=== PATIENT | male | born 1995 | race African-American/Black ===

== ENCOUNTER 2018-08-10 19:07 | Emergency (ER) | payer SELFPAY ==
[2018-08-10] MEDS: levETIRAcetam INJection 1,000 MG in D5W 100 ML IV (19:47)
== END 2018-08-10 21:29 | disposition home or self-care (01) ==
LOC: M ED 19:07
DX: G40.909 Epilepsy, unspecified, not intractable, without status epilepticus (principal); Z79.899 Other long term (current) drug therapy
CPT/HCPCS: J1953

== ENCOUNTER 2018-12-25 11:39 | Emergency (ER) | payer OTHER, SELFPAY ==
[~2018-12-25] VITALS: Ht 172.7 cm; Wt 68.2 kg
[~2018-12-25 11:39] MED LIST: KEPP10002 PO; LAMO100T PO; OXCA600T8 PO
--- NOTE | 2018-12-25 12:19 | REP ---
CT Head without contrast HISTORY: Head injury COMPARISON: There is no intraparenchymal hemorrhage, acute infarct, mass or midline shift. The ventricular system is normal in appearance. There is no extra cerebral collection. There is no fracture. The visualized sinuses are clear. IMPRESSION: There is no intracranial lesion. Electronically Signed by Klever Jamison MD 12/25/2018 12:10 P
--- NOTE | 2018-12-25 12:23 | REP ---
CT cervical spine without contrast HISTORY: Head injury COMPARISON: None There is no acute fracture or subluxation. There is no disc bulge or herniation. The spinal canal and neural foramina are patent. The intervertebral discs and vertebral bodies are normal in height. IMPRESSION: There is no acute fracture or subluxation. Electronically Signed by Klever Jamison MD 12/25/2018 12:14 P
[2018-12-25] MEDS ORDERED: KEPP10002 PO (12:40)
[2018-12-25] MEDS ORDERED: OXCA600T8 PO (12:41)
[2018-12-25] MEDS ORDERED: LAMI1TAB8 PO (12:41)
[2018-12-25] MEDS ORDERED: lamoTRIgine 100MG TAB PO ONE (12:45)
[2018-12-25] MEDS ORDERED: OXcarbazepine 300 MG TAB PO ONE (12:45)
[2018-12-25] MEDS ORDERED: levETIRAcetam 250MG TABLET (KEPPRA) PO ONE (12:45)
[2018-12-25 12:52] VITALS: BP 126/72
== END 2018-12-25 12:58 | disposition home or self-care (01) ==
LOC: M ED 11:39
DX: G40.909 Epilepsy, unspecified, not intractable, without status epilepticus (principal); Z79.899 Other long term (current) drug therapy

== ENCOUNTER 2019-01-03 13:27 | Emergency (ER) | payer OTHER ==
[~2019-01-03] VITALS: Ht 172.7 cm; Wt 67.0 kg
[~2019-01-03 13:27] MED LIST changes: +LAMI1TAB8 PO
[2019-01-03 13:28] VITALS: BP 123/65
[2019-01-03] MEDS ORDERED: LAMI1TAB8 PO (14:00)
[2019-01-03] MEDS ORDERED: KEPP10002 PO (14:00)
[2019-01-03] MEDS ORDERED: OXCA600T8 PO (14:00)
== END 2019-01-03 14:13 | disposition home or self-care (01) ==
LOC: M ED 13:27
DX: Z76.0 Encounter for issue of repeat prescription (principal); R56.9 Unspecified convulsions; Z72.0 Tobacco use; Z79.899 Other long term (current) drug therapy

== ENCOUNTER 2019-01-11 12:38 | Emergency (ER) | payer OTHER ==
[~2019-01-11] VITALS: Ht 172.7 cm; Wt 67.7 kg
[2019-01-11 12:38] VITALS: BP 149/67
[2019-01-11] MEDS ORDERED: LAMI1TAB8 PO (13:13)
[2019-01-11] MEDS ORDERED: OXCA600T8 PO (13:13)
[2019-01-11] MEDS ORDERED: KEPP10002 PO (13:13)
== END 2019-01-11 13:21 | disposition home or self-care (01) ==
LOC: M ED 12:38
DX: Z76.0 Encounter for issue of repeat prescription (principal)

== ENCOUNTER 2019-01-24 11:27 | Emergency (ER) | payer OTHER ==
[~2019-01-24] VITALS: Ht 172.7 cm; Wt 69.1 kg
[2019-01-24] MEDS ORDERED: OXCA600T8 PO (14:26)
[2019-01-24] MEDS ORDERED: KEPP10002 PO (14:26)
[2019-01-24] MEDS ORDERED: LAMI1TAB8 PO (14:26)
[2019-01-24 14:30] VITALS: BP 118/71
== END 2019-01-24 14:34 | disposition home or self-care (01) ==
LOC: M ED 11:27
DX: Z76.0 Encounter for issue of repeat prescription (principal); G40.909 Epilepsy, unspecified, not intractable, without status epilepticus; Z72.0 Tobacco use; Z79.899 Other long term (current) drug therapy

== ENCOUNTER → 2019-02-08 | Outpatient (REF) | payer OTHER, SELFPAY ==
[2019-02-08 16:05] LABS: BASO % 0.7 % (0.0-1.0); EOS # 0.1 10^3/uL (0.0-0.50); HEMATOCRIT 47.1 % (42.0-52.0); HEMOGLOBIN 16.3 g/dl (13.5-17.5); LYMPH # 1.7 10^3/uL (1.5-6.5); LYMPH % 40.1 % (24.0-44.0); MEAN CORPUSCULAR HEMOGLOBIN 30.7 pg (27.0-33.0); MEAN CORPUSCULAR HGB CONC 34.6 g/dl (32.0-36.5); MEAN CORPUSCULAR VOLUME 88.7 fl (80.0-96.0); MONO # 0.6 10^3/uL (0.0-0.8); MONO % 13.8 % (0.0-5.0); NEUTROPHILS # 1.8 10^3/uL (1.8-7.7); NEUTROPHILS % 42.2 % (36.0-66.0); PLATELET COUNT, AUTOMATED 308 10^3/uL (150-450); RED BLOOD COUNT 5.31 10^6/uL (4.30-6.10); WHITE BLOOD COUNT 4.3 10^3/uL (4.0-10.0)
[2019-02-08 16:23] LABS: ALBUMIN 4.6 GM/DL (3.2-5.2); ALT/SGPT 15 U/L (12-78); BILIRUBIN,TOTAL 0.5 MG/DL (0.2-1.0); BLOOD UREA NITROGEN 12 MG/DL (7-18); CALCIUM LEVEL 9.9 MG/DL (8.5-10.1); CARBAMAZEPINE (TEGRETOL) LEVEL < 0.5 UG/ML (4.0-10.0); CARBON DIOXIDE LEVEL 28 MEQ/L (21-32); CHLORIDE LEVEL 102 MEQ/L (98-107); CREATININE FOR GFR 1.19 MG/DL (0.70-1.30); GLOMERULAR FILTRATION RATE > 60.0 (>60); GLUCOSE, FASTING 71 MG/DL (70-100); POTASSIUM SERUM 4.4 MEQ/L (3.5-5.1); SODIUM LEVEL 137 MEQ/L (136-145); TOTAL PROTEIN 7.3 GM/DL (6.4-8.2)
[2019-02-13 10:28] LABS: LAMOTRIGINE (LAMICTAL) 15.6 ug/mL (2.0-20.0); LEVETIRACETAM (KEPPRA) 24.7 ug/mL (10.0-40.0)
== END ==
LOC: M SFHCPLAZ 14:33
PROVIDERS: ATTEND Physician Assistant Medical
DX: R56.9 Unspecified convulsions (principal)

== ENCOUNTER 2019-03-11 15:43 | Emergency (ER) | payer OTHER, SELFPAY ==
[~2019-03-11] VITALS: Ht 172.7 cm; Wt 75.0 kg
[2019-03-11 15:44] VITALS: BP 124/67
[2019-03-11] MEDS ORDERED: OXcarbazepine 300 MG TAB PO STA (16:16)
[2019-03-11] MEDS ORDERED: levETIRAcetam 250MG TABLET (KEPPRA) PO ONE (16:30)
[2019-03-11] MEDS ORDERED: KEPP10002 PO (16:31)
[2019-03-11] MEDS ORDERED: OXCA600T8 PO (16:31)
== END 2019-03-11 16:41 | disposition home or self-care (01) ==
LOC: M ED 15:43
DX: Z76.0 Encounter for issue of repeat prescription (principal); G40.909 Epilepsy, unspecified, not intractable, without status epilepticus; Z79.899 Other long term (current) drug therapy

== ENCOUNTER 2019-03-29 00:12 | Emergency (ER) | payer OTHER, SELFPAY ==
[~2019-03-29] VITALS: Ht 172.7 cm; Wt 65.9 kg
[2019-03-29 00:13] VITALS: BP 132/79
[2019-03-29] MEDS ORDERED: lamoTRIgine 100MG TAB PO ONE (01:00)
[2019-03-29] MEDS ORDERED: levETIRAcetam 250MG TABLET (KEPPRA) PO ONE (01:00)
[2019-03-29] MEDS ORDERED: OXcarbazepine 300 MG TAB PO STA (01:00)
[2019-03-29] MEDS ORDERED: OXCA600T8 PO (01:04)
[2019-03-29] MEDS ORDERED: LAMI1TAB8 PO (01:04)
[2019-03-29] MEDS ORDERED: KEPP10002 PO (01:04)
== END 2019-03-29 01:14 | disposition home or self-care (01) ==
LOC: M ED 00:12
DX: Z76.0 Encounter for issue of repeat prescription (principal); G40.909 Epilepsy, unspecified, not intractable, without status epilepticus; Z79.899 Other long term (current) drug therapy; F17.210 Nicotine dependence, cigarettes, uncomplicated

== ENCOUNTER 2021-11-19 22:56 | Inpatient (IN) | payer OTHER, SELFPAY ==
[~2021-11-19] VITALS: Ht 172.7 cm; Wt 61.0 kg
[~2021-11-19 22:56] MED LIST changes: -LAMO100T PO; +LAMO100T3 PO
[2021-11-19] MEDS: MORPHINE 4 MG/ML 1ML VIAL/SYRINGE (J2270) IV PRN ×2 (23:21→23:51)
[2021-11-20] MEDS ORDERED: MORPHINE 4 MG/ML 1ML VIAL/SYRINGE (J2270) IV ONE ×2 (00:20→05:15)
[2021-11-20] MEDS ORDERED: OXCA600T8 PO (00:40)
[2021-11-20] MEDS ORDERED: HOME MED LIST COMPLETE! XX SCH (00:40)
[2021-11-20] MEDS ORDERED: LAMI1TAB8 PO (00:40)
[2021-11-20] MEDS ORDERED: KEPP10002 PO (00:40)
[2021-11-20 00:47] LABS: BASO % 0.3 % (0.0-1.0); EOS % 0.4 % (0.0-3.0); HEMOGLOBIN 14.8 g/dl (13.5-17.5); LYMPH # 1.4 10^3/uL (1.5-5.0); MEAN CORPUSCULAR HEMOGLOBIN 30.8 pg (27.0-33.0); MEAN CORPUSCULAR HGB CONC 34.4 g/dl (32.0-36.5); MEAN CORPUSCULAR VOLUME 89.4 fl (80.0-96.0); MONO # 0.7 10^3/uL (0.0-0.8); MONO % 7.7 % (2.0-8.0); NEUTROPHILS # 7.2 10^3/uL (1.5-8.5); NEUTROPHILS % 76.2 % (36.0-66.0); PLATELET COUNT, AUTOMATED 297 10^3/uL (150-450); RED BLOOD COUNT 4.81 10^6/uL (4.30-6.10); WHITE BLOOD COUNT 9.5 10^3/uL (4.0-10.0)
[2021-11-20 01:02] LABS: RSV AMPLIFICATION NEGATIVE (NEGATIVE)
[2021-11-20] MEDS ORDERED: MORPHINE 4 MG/ML 1ML VIAL/SYRINGE (J2270) IV PRN ×2 (01:15→02:35)
[2021-11-20 01:22] LABS: BLOOD UREA NITROGEN 18 MG/DL (7-18); CALCIUM LEVEL 9.5 MG/DL (8.5-10.1); CARBON DIOXIDE LEVEL 31 MEQ/L (21-32); CHLORIDE LEVEL 104 MEQ/L (98-107); CREATININE FOR GFR 1.26 MG/DL (0.70-1.30); GLOMERULAR FILTRATION RATE > 60.0 (>60); GLUCOSE, FASTING 115 MG/DL (70-100); POTASSIUM SERUM 4.6 MEQ/L (3.5-5.1); SODIUM LEVEL 139 MEQ/L (136-145)
[2021-11-20] MEDS ORDERED: NS 1,000 ML IV SCH (03:25)
[2021-11-20 04:00] VITALS: BP 146/88
[2021-11-20] MEDS ORDERED: PILL CUTTER 1 EACH XX PRN (04:35)
[2021-11-20] MEDS ORDERED: NALOXONE INJ 0.4MG/1ML VIAL (J2310 PER 1MG) IV PRN (05:15)
[2021-11-20 07:54] LABS: HEMATOCRIT 41.6 % (42.0-52.0); HEMOGLOBIN 14.6 g/dl (13.5-17.5); MEAN CORPUSCULAR HEMOGLOBIN 31.3 pg (27.0-33.0); MEAN CORPUSCULAR HGB CONC 35.1 g/dl (32.0-36.5); MEAN CORPUSCULAR VOLUME 89.3 fl (80.0-96.0); PLATELET COUNT, AUTOMATED 288 10^3/uL (150-450); RED BLOOD COUNT 4.66 10^6/uL (4.30-6.10); WHITE BLOOD COUNT 10.9 10^3/uL (4.0-10.0)
[2021-11-20 08:02] LABS: INR 1.05; PROTHROMBIN TIME 14.1 SECONDS (12.7-14.5)
[2021-11-20 08:30] LABS: BLOOD UREA NITROGEN 14 MG/DL (7-18); CALCIUM LEVEL 8.9 MG/DL (8.5-10.1); CARBON DIOXIDE LEVEL 28 MEQ/L (21-32); CHLORIDE LEVEL 105 MEQ/L (98-107); CREATININE FOR GFR 1.05 MG/DL (0.70-1.30); GLOMERULAR FILTRATION RATE > 60.0 (>60); GLUCOSE, FASTING 113 MG/DL (70-100); POTASSIUM SERUM 4.2 MEQ/L (3.5-5.1); SODIUM LEVEL 138 MEQ/L (136-145)
[2021-11-20] MEDS: HEPARIN SOD (PORCINE) 5000UNITS/ML 1ML VIAL/SYRINGE SC SCH ×2 (09:00→21:46)
[2021-11-20] MEDS: lamoTRIgine 100MG TAB PO SCH ×3 (09:00→21:44)
[2021-11-20] MEDS: OXcarbazepine 300 MG TAB PO SCH ×3 (09:00→21:44)
[2021-11-20] MEDS ORDERED: levETIRAcetam INJection 1,000 MG in D5W 100 ML IV SCH (09:00)
[2021-11-20] MEDS: MORPHINE 4 MG/ML 1ML VIAL/SYRINGE (J2270) IV PRN ×2 (11:29→15:21)
[2021-11-20 14:00] VITALS: BP 134/83
[2021-11-20] MEDS ORDERED: TRANEXAMIC ACID 100 MG/ML 10ML VIAL As Ordered ONE (17:49)
[2021-11-20] MEDS ORDERED: ceFAZolin 2 GM/D5W 50 ML IV BAG (J0690 PER 500MG) As Ordered ONE (17:49)
[2021-11-20] MEDS ORDERED: ONDANSETRON 4MG/2ML VIAL IV PRN (20:25)
[2021-11-20] MEDS ORDERED: HYDROMORPHONE HCL 0.5 MG/ 0.5 ML SYRINGE (J1170 PER 1) IV PRN (20:25)
[2021-11-20] MEDS ORDERED: LR 1,000 ML IV SCH (20:25)
[2021-11-20] MEDS ORDERED: oxyCODONE 5MG TAB PO PRN (20:25)
[2021-11-20] MEDS ORDERED: fentaNYL 100 MCG/2 ML INJECTION IV PRN (20:25)
[2021-11-20 21:27] VITALS: BP 129/67
[2021-11-20] MEDS: levETIRAcetam 250MG TABLET (KEPPRA) PO SCH (21:45)
[2021-11-20] MEDS: LR 1,000 ML IV SCH (21:47)
[2021-11-20 22:00] VITALS: BP 129/76
[2021-11-20 22:30] VITALS: BP 123/67
[2021-11-20 23:30] VITALS: BP 135/78
[2021-11-21] VITALS (9 sets, daily range): BP systolic 123–155; BP diastolic 67–90
[2021-11-21] MEDS: oxyCODONE 5MG TAB PO PRN ×4 (00:55→20:58)
[2021-11-21] MEDS: ceFAZolin SOD 1 GM in D5W MINI-BAG PLUS 50 ML IV SCH ×2 (02:18→09:26)
[2021-11-21] MEDS: MORPHINE 4 MG/ML 1ML VIAL/SYRINGE (J2270) IV PRN (03:45)
[2021-11-21 06:31] LABS: BASO % 0.3 % (0.0-1.0); EOS % 0.1 % (0.0-3.0); HEMATOCRIT 37.8 % (42.0-52.0); HEMOGLOBIN 13.5 g/dl (13.5-17.5); LYMPH # 1.7 10^3/uL (1.5-5.0); LYMPH % 16.1 % (24.0-44.0); MEAN CORPUSCULAR HEMOGLOBIN 31.3 pg (27.0-33.0); MEAN CORPUSCULAR HGB CONC 35.7 g/dl (32.0-36.5); MEAN CORPUSCULAR VOLUME 87.7 fl (80.0-96.0); MONO # 1.4 10^3/uL (0.0-0.8); MONO % 13.2 % (2.0-8.0); NEUTROPHILS # 7.3 10^3/uL (1.5-8.5); PLATELET COUNT, AUTOMATED 261 10^3/uL (150-450); RED BLOOD COUNT 4.31 10^6/uL (4.30-6.10); WHITE BLOOD COUNT 10.4 10^3/uL (4.0-10.0)
[2021-11-21 06:49] LABS: BLOOD UREA NITROGEN 7 MG/DL (7-18); CALCIUM LEVEL 9.2 MG/DL (8.5-10.1); CARBON DIOXIDE LEVEL 31 MEQ/L (21-32); CHLORIDE LEVEL 103 MEQ/L (98-107); GLOMERULAR FILTRATION RATE > 60.0 (>60); GLUCOSE, FASTING 114 MG/DL (70-100); MAGNESIUM LEVEL 1.8 MG/DL (1.8-2.4); POTASSIUM SERUM 4.3 MEQ/L (3.5-5.1); SODIUM LEVEL 138 MEQ/L (136-145)
[2021-11-21] MEDS: ASPIRIN 81 MG CHEW TABLET PO SCH ×2 (08:42→20:58)
[2021-11-21] MEDS: HEPARIN SOD (PORCINE) 5000UNITS/ML 1ML VIAL/SYRINGE SC SCH ×2 (08:42→21:00)
[2021-11-21] MEDS: lamoTRIgine 100MG TAB PO SCH ×2 (08:42→20:59)
[2021-11-21] MEDS: OXcarbazepine 300 MG TAB PO SCH ×2 (08:43→20:58)
[2021-11-21] MEDS: levETIRAcetam 250MG TABLET (KEPPRA) PO SCH ×2 (08:43→20:58)
[2021-11-21] MEDS: LR 1,000 ML IV SCH (09:26)
[2021-11-22 04:00] VITALS: BP 134/78
[2021-11-22] MEDS: oxyCODONE 5MG TAB PO PRN ×3 (05:10→19:28)
[2021-11-22] MEDS: HEPARIN SOD (PORCINE) 5000UNITS/ML 1ML VIAL/SYRINGE SC SCH ×2 (08:30→20:13)
[2021-11-22] MEDS: OXcarbazepine 300 MG TAB PO SCH ×2 (08:30→20:12)
[2021-11-22] MEDS: lamoTRIgine 100MG TAB PO SCH ×2 (08:30→20:13)
[2021-11-22] MEDS: levETIRAcetam 250MG TABLET (KEPPRA) PO SCH ×2 (08:30→20:12)
[2021-11-22] MEDS: ASPIRIN 81 MG CHEW TABLET PO SCH ×2 (08:30→20:13)
[2021-11-22 14:00] VITALS: BP 155/68
[2021-11-22 20:00] VITALS: BP 132/68
[2021-11-23] MEDS: oxyCODONE 5MG TAB PO PRN ×4 (01:48→20:29)
[2021-11-23 04:00] VITALS: BP 124/68
[2021-11-23] MEDS: ASPIRIN 81 MG CHEW TABLET PO SCH ×2 (07:59→20:27)
[2021-11-23] MEDS: lamoTRIgine 100MG TAB PO SCH ×2 (08:00→20:28)
[2021-11-23] MEDS: HEPARIN SOD (PORCINE) 5000UNITS/ML 1ML VIAL/SYRINGE SC SCH ×2 (08:00→20:30)
[2021-11-23] MEDS: OXcarbazepine 300 MG TAB PO SCH ×2 (08:01→20:28)
[2021-11-23] MEDS: levETIRAcetam 250MG TABLET (KEPPRA) PO SCH ×2 (08:01→20:27)
[2021-11-23 14:00] VITALS: BP 126/67
[2021-11-23 20:02] VITALS: BP 121/68
[2021-11-24] MEDS: oxyCODONE 5MG TAB PO PRN (05:01)
[2021-11-24 06:00] VITALS: BP 131/69
[2021-11-24] MEDS: ASPIRIN 81 MG CHEW TABLET PO SCH (09:20)
[2021-11-24] MEDS: levETIRAcetam 250MG TABLET (KEPPRA) PO SCH (09:21)
[2021-11-24] MEDS: lamoTRIgine 100MG TAB PO SCH (09:21)
[2021-11-24] MEDS: OXcarbazepine 300 MG TAB PO SCH (09:21)
[2021-11-24] MEDS: HEPARIN SOD (PORCINE) 5000UNITS/ML 1ML VIAL/SYRINGE SC SCH (09:21)
[2021-11-24] MEDS ORDERED: ASPI81CH8 PO (12:39)
[2021-11-24] MEDS ORDERED: KEPP10002 PO (12:47)
[2021-11-24] MEDS ORDERED: OXCA600T8 PO (12:47)
[2021-11-24] MEDS ORDERED: LAMI1TAB8 PO (12:47)
== END 2021-11-24 14:10 | disposition home or self-care (01) | DRG 313 ==
LOC: M ED 22:56 → M ED INP 11-20 02:19 → M MS4PR 11-20 03:55
PROVIDERS: ADMIT Family Medicine; ATTEND Internal Medicine
PROC: 0QSH04Z Reposition Left Tibia with Internal Fixation Device, Open Approach (ICD-10-PCS; principal; 2021-11-20 09:36)
DX: S82.102A Unspecified fracture of upper end of left tibia, initial encounter for closed fracture (principal); G40.909 Epilepsy, unspecified, not intractable, without status epilepticus; Z79.899 Other long term (current) drug therapy; W18.30XA Fall on same level, unspecified, initial encounter; Y92.009 Unspecified place in unspecified non-institutional (private) residence as the place of occurrence of the external cause; S82.452A Displaced comminuted fracture of shaft of left fibula, initial encounter for closed fracture

== ENCOUNTER → 2021-12-01 | Outpatient (CLI) | payer OTHER ==
[~2021-12-01] MED LIST changes: +ASPI81CH8 PO
== END ==
LOC: M SOG 09:05
PROVIDERS: ATTEND Orthopaedic Surgery
DX: S82.302D Unspecified fracture of lower end of left tibia, subsequent encounter for closed fracture with routine healing (principal); S82.452D Displaced comminuted fracture of shaft of left fibula, subsequent encounter for closed fracture with routine healing; W18.30XD Fall on same level, unspecified, subsequent encounter; Y92.009 Unspecified place in unspecified non-institutional (private) residence as the place of occurrence of the external cause; Y93.9 Activity, unspecified; Y99.9 Unspecified external cause status

== ENCOUNTER 2022-01-08 21:59 | Emergency (ER) | payer MEDICAID ==
[~2022-01-08] VITALS: Ht 172.7 cm; Wt 63.6 kg
[2022-01-08] MEDS ORDERED: lamoTRIgine 100MG TAB PO ONE (22:15)
[2022-01-08] MEDS ORDERED: levETIRAcetam INJection 1,000 MG in D5W 100 ML IV ONE (22:15)
[2022-01-08] MEDS ORDERED: OXcarbazepine 300 MG TAB PO ONE (22:15)
[2022-01-08 22:34] VITALS: BP 136/78
[2022-01-08] MEDS ORDERED: KEPP10002 PO (23:31)
[2022-01-08] MEDS ORDERED: OXCA600T8 PO (23:31)
[2022-01-08] MEDS ORDERED: LAMI1TAB8 PO (23:31)
== END 2022-01-09 00:08 | disposition home or self-care (01) ==
LOC: EDBD 21:59 → M ED 21:59
DX: G40.309 Generalized idiopathic epilepsy and epileptic syndromes, not intractable, without status epilepticus (principal); F12.10 Cannabis abuse, uncomplicated; Z86.69 Personal history of other diseases of the nervous system and sense organs; Z91.19 Patient's noncompliance with other medical treatment and regimen; Z79.899 Other long term (current) drug therapy
CPT/HCPCS: 96365; 99284; J1953

== ENCOUNTER → 2022-01-11 | Outpatient (CLI) | payer MEDICAID | LOC: M SOG 09:33 | PROVIDERS: ATTEND Orthopaedic Surgery | DX: S82.392D Other fracture of lower end of left tibia, subsequent encounter for closed fracture with routine healing (principal) ==

== ENCOUNTER 2022-02-08 17:13 | Emergency (ER) | payer MEDICAID, OTHER ==
[~2022-02-08] VITALS: Ht 172.7 cm; Wt 62.7 kg
[2022-02-08 17:13] VITALS: BP 137/72
[2022-02-08] MEDS ORDERED: KEPP10002 PO (17:50)
== END 2022-02-08 17:56 | disposition home or self-care (01) ==
LOC: M ED 17:13
DX: Z76.0 Encounter for issue of repeat prescription (principal)

== ENCOUNTER 2022-04-08 19:58 | Emergency (ER) | payer OTHER ==
[~2022-04-08] VITALS: Ht 172.7 cm; Wt 63.6 kg
[2022-04-08 19:59] VITALS: BP 119/73
[2022-04-08] MEDS ORDERED: levETIRAcetam 250MG TABLET (KEPPRA) PO STA (22:38)
[2022-04-08] MEDS ORDERED: lamoTRIgine 100MG TAB PO STA (22:38)
[2022-04-08] MEDS ORDERED: OXcarbazepine 300 MG TAB PO STA (22:38)
[2022-04-08] MEDS ORDERED: LAMI1TAB8 PO (22:44)
[2022-04-08] MEDS ORDERED: OXCA600T8 PO (22:44)
[2022-04-08] MEDS ORDERED: KEPP10002 PO (22:44)
[2022-04-08] MEDS ORDERED: PILL CUTTER 1 EACH XX PRN (22:45)
== END 2022-04-09 00:27 | disposition home or self-care (01) ==
LOC: M ED 19:58
DX: Z76.0 Encounter for issue of repeat prescription (principal); R56.9 Unspecified convulsions; Z79.899 Other long term (current) drug therapy

== ENCOUNTER 2022-06-09 14:46 | Emergency (ER) | payer OTHER ==
[~2022-06-09] VITALS: Ht 172.7 cm; Wt 66.0 kg
[2022-06-09 14:49] VITALS: BP 137/92
[2022-06-09 15:45] LABS: HEMATOCRIT 45.6 % (42.0-52.0); HEMOGLOBIN 15.6 g/dl (13.5-17.5); MEAN CORPUSCULAR HEMOGLOBIN 31.6 pg (27.0-33.0); MEAN CORPUSCULAR HGB CONC 34.2 g/dl (32.0-36.5); MEAN CORPUSCULAR VOLUME 92.3 fl (80.0-96.0); PLATELET COUNT, AUTOMATED 272 10^3/uL (150-450); RED BLOOD COUNT 4.94 10^6/uL (4.30-6.10); WHITE BLOOD COUNT 5.6 10^3/uL (4.0-10.0)
[2022-06-09] MEDS ORDERED: KEPP1TAB PO (15:50)
[2022-06-09] MEDS ORDERED: DIVA500T94 PO (15:50)
[2022-06-09] MEDS ORDERED: ACETAMINOPHEN 325 MG TAB PO ONE (15:55)
[2022-06-09 16:16] LABS: BLOOD UREA NITROGEN 8 MG/DL (7-18); CALCIUM LEVEL 9.2 MG/DL (8.5-10.1); CARBON DIOXIDE LEVEL 26 MEQ/L (21-32); CHLORIDE LEVEL 106 MEQ/L (98-107); CREATININE FOR GFR 1.05 MG/DL (0.70-1.30); GLOMERULAR FILTRATION RATE > 60.0 (>60); GLUCOSE, FASTING 76 MG/DL (70-100); POTASSIUM SERUM 4.5 MEQ/L (3.5-5.1); SODIUM LEVEL 138 MEQ/L (136-145); VALPROIC ACID (DEPAKOTE) 86.6 UG/ML (50.0-100.0)
[2022-06-09 17:15] LABS: AMPHETAMINES LEVEL URINE NEGATIVE (NEGATIVE); BARBITURATES URINE NEGATIVE (NEGATIVE); BENZODIAZEPINES URINE NEGATIVE (NEGATIVE); CANNABINOIDS URINE POSITIVE (NEGATIVE); COCAINE METABOLITE URINE NEGATIVE (NEGATIVE); METHADONE URINE NEGATIVE (NEGATIVE); OPIATES URINE NEGATIVE (NEGATIVE); PHENCYCLIDINE URINE NEGATIVE (NEGATIVE)
[2022-06-09] MEDS ORDERED: LAMO150T3 PO (20:39)
[2022-06-09] MEDS ORDERED: OXCA600T8 PO (20:39)
[2022-06-09] MEDS ORDERED: KEPP10002 PO (20:39)
== END 2022-06-09 18:33 | disposition home or self-care (01) ==
LOC: M ED 14:46
DX: G40.89 Other seizures (principal)

== ENCOUNTER 2022-06-09 19:24 | Observation (INO) | payer OTHER ==
[~2022-06-09 19:24] MED LIST changes: +DIVA500T94 PO; +KEPP1TAB PO
[2022-06-09] MEDS ORDERED: lamoTRIgine 100MG TAB PO ONE (19:35)
[2022-06-09] MEDS ORDERED: DIVALPROEX 500 MG TAB PO ONE (19:35)
[2022-06-09] MEDS ORDERED: LORazepam 2 MG/ML VIAL IV PRN (20:05)
[2022-06-09] MEDS ORDERED: KEPP10002 PO (20:39)
[2022-06-09] MEDS ORDERED: OXCA600T8 PO (20:39)
[2022-06-09] MEDS ORDERED: LAMO150T3 PO (20:39)
[2022-06-09] MEDS ORDERED: HOME MED LIST COMPLETE! XX SCH (20:40)
[2022-06-09 20:45] LABS: RSV AMPLIFICATION NEGATIVE (NEGATIVE)
[2022-06-10] MEDS ORDERED: PILL CUTTER 1 EACH XX PRN (01:50)
[2022-06-10] MEDS ORDERED: lamoTRIgine 100MG TAB PO SCH (09:00)
[2022-06-10] MEDS ORDERED: OXcarbazepine 300 MG TAB PO SCH (09:00)
[2022-06-10] MEDS ORDERED: levETIRAcetam 250MG TABLET (KEPPRA) PO SCH (09:00)
[2022-06-10] MEDS ORDERED: DIVALPROEX 500 MG TAB PO SCH (09:00)
[2022-06-10 10:01] VITALS: BP 122/70
== END 2022-06-10 10:23 | disposition home or self-care (01) ==
LOC: EDBD 19:24 → M ED 19:24 → M ED INP 19:25 → ENRESERV 06-10 09:31 → CANRESERV 06-10 09:31
PROVIDERS: ADMIT Internal Medicine; ATTEND Internal Medicine
DX: G40.909 Epilepsy, unspecified, not intractable, without status epilepticus (principal); Z79.899 Other long term (current) drug therapy; F12.10 Cannabis abuse, uncomplicated

== ENCOUNTER 2023-01-11 20:33 | Emergency (ER) | payer OTHER ==
[~2023-01-11] VITALS: Ht 172.7 cm; Wt 63.6 kg
[~2023-01-11 20:33] MED LIST changes: +LAMO150T3 PO
[2023-01-11 20:37] VITALS: BP 121/76
== END 2023-01-11 22:39 | disposition left against medical advice (07) ==
LOC: M ED 20:33 → EDBD 20:33 → M ED 22:39
DX: Z53.21 Procedure and treatment not carried out due to patient leaving prior to being seen by health care provider (principal)

== ENCOUNTER 2023-01-19 18:18 | Emergency (ER) | payer OTHER ==
[~2023-01-19] VITALS: Ht 172.7 cm; Wt 62.3 kg
[2023-01-19 18:19] VITALS: BP 111/67
[2023-01-19] MEDS ORDERED: OXcarbazepine 300 MG TAB PO ONE (23:20)
[2023-01-19] MEDS ORDERED: KEPP10002 PO (23:20)
[2023-01-19] MEDS ORDERED: OXCA600T8 PO (23:20)
[2023-01-19] MEDS ORDERED: levETIRAcetam 250MG TABLET (KEPPRA) PO ONE (23:20)
== END 2023-01-19 23:29 | disposition home or self-care (01) ==
LOC: M ED 18:18
DX: G40.911 Epilepsy, unspecified, intractable, with status epilepticus (principal); Z76.0 Encounter for issue of repeat prescription; F17.200 Nicotine dependence, unspecified, uncomplicated; F12.10 Cannabis abuse, uncomplicated; Z79.899 Other long term (current) drug therapy; Z79.811 Long term (current) use of aromatase inhibitors

== ENCOUNTER 2023-01-22 10:59 | Emergency (ER) | payer OTHER ==
[~2023-01-22] VITALS: Ht 172.7 cm; Wt 63.0 kg
[2023-01-22] MEDS ORDERED: OXcarbazepine 300 MG TAB PO STA (11:17)
[2023-01-22] MEDS ORDERED: levETIRAcetam INJection 1,000 MG in D5W 100 ML IV ONE (11:20)
[2023-01-22] MEDS ORDERED: ACETAMINOPHEN TAB 650MG DOSE (2X325MG) PO ONE (11:30)
[2023-01-22 11:43] LABS: BASO % 0.5 % (0.0-1.0); EOS # 0.1 10^3/uL (0.0-0.5); EOS % 0.8 % (0.0-3.0); HEMATOCRIT 44.7 % (42.0-52.0); HEMOGLOBIN 15.4 g/dl (13.5-17.5); LYMPH # 1.5 10^3/uL (1.5-5.0); LYMPH % 19.1 % (24.0-44.0); MEAN CORPUSCULAR HEMOGLOBIN 31.4 pg (27.0-33.0); MEAN CORPUSCULAR HGB CONC 34.5 g/dl (32.0-36.5); MONO # 0.9 10^3/uL (0.0-0.8); MONO % 11.4 % (2.0-8.0); NEUTROPHILS # 5.4 10^3/uL (1.5-8.5); NEUTROPHILS % 67.7 % (36.0-66.0); PLATELET COUNT, AUTOMATED 310 10^3/uL (150-450); RED BLOOD COUNT 4.91 10^6/uL (4.30-6.10); WHITE BLOOD COUNT 7.9 10^3/uL (4.0-10.0)
[2023-01-22 12:19] LABS: ALBUMIN 2.3 G/DL (3.2-5.2); ALKALINE PHOSPHATASE 39 U/L (46-116); ALT/SGPT 10 U/L (7.0-40); AST/SGOT 9 U/L (<34); BILIRUBIN,DIRECT 0.1 MG/DL (<0.4); BILIRUBIN,TOTAL 0.2 MG/DL (0.3-1.2); BLOOD UREA NITROGEN 11 MG/DL (9-23); CARBON DIOXIDE LEVEL 16 MMOL/L (20-31); CHLORIDE LEVEL 119 MMOL/L (98-107); CREATININE FOR GFR 0.57 MG/DL (0.70-1.30); GLOMERULAR FILTRATION RATE > 60.0 (>60); GLUCOSE, FASTING 56 MG/DL (60-100); POTASSIUM SERUM 2.6 MMOL/L (3.5-5.1); SODIUM LEVEL 145 MMOL/L (136-145); TOTAL PROTEIN 3.7 G/DL (5.7-8.2)
[2023-01-22] MEDS ORDERED: DEXTROSE 50% 50ML SYRINGE IV STA (12:25)
[2023-01-22] MEDS ORDERED: NS 1,000 ML IV ONE (12:30)
[2023-01-22 13:19] LABS: BLOOD UREA NITROGEN 14 MG/DL (9-23); CARBON DIOXIDE LEVEL 27 MMOL/L (20-31); CHLORIDE LEVEL 104 MMOL/L (98-107); CREATININE FOR GFR 0.91 MG/DL (0.70-1.30); GLOMERULAR FILTRATION RATE > 60.0 (>60); GLUCOSE, FASTING 90 MG/DL (60-100); POTASSIUM SERUM 4.3 MMOL/L (3.5-5.1); SODIUM LEVEL 137 MMOL/L (136-145)
[2023-01-22] MEDS ORDERED: KEPP10002 PO (13:26)
[2023-01-22] MEDS ORDERED: OXCA600T8 PO (13:27)
[2023-01-22 13:30] VITALS: BP 123/76
== END 2023-01-22 13:50 | disposition home or self-care (01) ==
LOC: EDBD 10:59 → M ED 11:35
DX: G40.909 Epilepsy, unspecified, not intractable, without status epilepticus (principal); Z79.811 Long term (current) use of aromatase inhibitors; Z79.899 Other long term (current) drug therapy
CPT/HCPCS: 70450; 80048; 80076; 80180; 82330; 83735; 85025; 96365; 96375; 99284; J1953

== ENCOUNTER 2023-02-17 15:31 | Emergency (ER) | payer OTHER ==
[~2023-02-17] VITALS: Ht 172.7 cm; Wt 61.7 kg
[2023-02-17 15:38] VITALS: BP 126/73; TEMP 98.7; O2SAT 98
== END 2023-02-17 16:09 | disposition left against medical advice (07) ==
LOC: M ED 15:31
DX: Z53.21 Procedure and treatment not carried out due to patient leaving prior to being seen by health care provider (principal)

== ENCOUNTER 2023-02-24 16:52 | Emergency (ER) | payer OTHER ==
[~2023-02-24] VITALS: Ht 172.7 cm; Wt 63.3 kg
[2023-02-24] MEDS ORDERED: OXCA600T8 PO (20:15)
[2023-02-24] MEDS ORDERED: KEPP10002 PO (20:15)
[2023-02-24 20:21] VITALS: BP 120/74; TEMP 97.1; O2SAT 98
[2023-02-24] MEDS ORDERED: OXcarbazepine 300 MG TAB PO ONE (20:40)
[2023-02-24] MEDS ORDERED: levETIRAcetam 250MG TABLET (KEPPRA) PO ONE (20:40)
== END 2023-02-24 20:47 | disposition home or self-care (01) ==
LOC: M ED 16:52
DX: Z76.0 Encounter for issue of repeat prescription (principal); G40.909 Epilepsy, unspecified, not intractable, without status epilepticus; Z79.899 Other long term (current) drug therapy

== ENCOUNTER 2023-04-27 11:45 | Emergency (ER) | payer OTHER ==
[~2023-04-27] VITALS: Ht 172.7 cm; Wt 63.0 kg
[2023-04-27 12:52] LABS: HEMATOCRIT 47.3 % (42.0-52.0); HEMOGLOBIN 16.3 g/dl (13.5-17.5); MEAN CORPUSCULAR HEMOGLOBIN 30.9 pg (27.0-33.0); MEAN CORPUSCULAR HGB CONC 34.5 g/dl (32.0-36.5); MEAN CORPUSCULAR VOLUME 89.8 fl (80.0-96.0); PLATELET COUNT, AUTOMATED 261 10^3/uL (150-450); RED BLOOD COUNT 5.27 10^6/uL (4.30-6.10); WHITE BLOOD COUNT 4.1 10^3/uL (4.0-10.0)
[2023-04-27] MEDS ORDERED: KEPP10002 PO (13:05)
[2023-04-27] MEDS ORDERED: OXCA600T8 PO (13:05)
[2023-04-27 13:13] VITALS: BP 101/55; TEMP 96.6; O2SAT 100
== END 2023-04-27 13:15 | disposition home or self-care (01) ==
LOC: M ED 11:45
DX: Z76.0 Encounter for issue of repeat prescription (principal); G40.909 Epilepsy, unspecified, not intractable, without status epilepticus; Z79.83 Long term (current) use of bisphosphonates; Z79.811 Long term (current) use of aromatase inhibitors

== ENCOUNTER 2023-05-24 10:01 | Emergency (ER) | payer OTHER ==
[~2023-05-24] VITALS: Ht 172.7 cm; Wt 64.5 kg
[2023-05-24] MEDS ORDERED: levETIRAcetam INJection 1,000 MG in D5W 100 ML IV ONE (10:15)
[2023-05-24] MEDS ORDERED: OXcarbazepine 300 MG TAB PO ONE (10:15)
[2023-05-24] MEDS ORDERED: ACETAMINOPHEN TAB 650MG DOSE (2X325MG) PO ONE (10:20)
[2023-05-24 11:45] VITALS: BP 120/58; O2SAT 99
[2023-05-24] MEDS ORDERED: KEPP10002 PO (11:48)
[2023-05-24] MEDS ORDERED: OXCA600T8 PO (11:48)
[2023-05-24 11:58] VITALS: TEMP 96.7
== END 2023-05-24 11:59 | disposition home or self-care (01) ==
LOC: M ED 10:01 → EDBD 10:01 → M ED 11:59
DX: G40.409 Other generalized epilepsy and epileptic syndromes, not intractable, without status epilepticus (principal); F12.10 Cannabis abuse, uncomplicated; Z91.148 Patient's other noncompliance with medication regimen for other reason; Z79.83 Long term (current) use of bisphosphonates; Z79.899 Other long term (current) drug therapy
CPT/HCPCS: 96365; 99284; J1953

== ENCOUNTER 2023-10-24 07:44 | Emergency (ER) | payer OTHER ==
[~2023-10-24] VITALS: Ht 172.7 cm; Wt 61.6 kg
[2023-10-24] MEDS: ACETAMINOPHEN 500 MG TAB PO ONE (08:28)
[2023-10-24 08:31] LABS: VENOUS BASE EXCESS -2.7 (-2.0-2.0); VENOUS HCO3 23.5 MMOL/L (23.0-27.0); VENOUS O2 SATURATION 83.5 % (60.0-80.0); VENOUS PARTIAL PRESSURE CO2 46.1 mmHg (38.0-50.0); VENOUS PH 7.326 UNITS (7.330-7.430); VENOUS STANDARD HCO3 21.9 MMOL/L
[2023-10-24 08:45] LABS: BASO % 0.3 % (0.0-1.0); EOS % 0.2 % (0.0-3.0); HEMATOCRIT 40.9 % (42.0-52.0); HEMOGLOBIN 13.9 g/dl (13.5-17.5); LYMPH # 0.3 10^3/uL (1.5-5.0); LYMPH % 2.4 % (24.0-44.0); MEAN CORPUSCULAR HEMOGLOBIN 30.8 pg (27.0-33.0); MEAN CORPUSCULAR VOLUME 90.5 fl (80.0-96.0); MONO # 0.9 10^3/uL (0.0-0.8); MONO % 8.8 % (2.0-8.0); NEUTROPHILS # 9.1 10^3/uL (1.5-8.5); NEUTROPHILS % 87.6 % (36.0-66.0); PLATELET COUNT, AUTOMATED 216 10^3/uL (150-450); RED BLOOD COUNT 4.52 10^6/uL (4.30-6.10); WHITE BLOOD COUNT 10.4 10^3/uL (4.0-10.0)
[2023-10-24] MEDS: NS 1,850 ML in IV 1 EA IV ONE (08:48)
[2023-10-24] MEDS: cefTRIAXone SOD 2 GM in D5W MINI-BAG PLUS 50 ML IV ONE (08:48)
[2023-10-24 09:10] LABS: C REACTIVE PROTEIN QUANTITATIV 1.9 MG/DL (<1.0)
[2023-10-24 09:11] LABS: ALBUMIN 3.9 G/DL (3.2-5.2); BILIRUBIN,DIRECT 0.1 MG/DL (<0.4); BILIRUBIN,TOTAL 0.3 MG/DL (0.3-1.2); TOTAL PROTEIN 6.6 G/DL (5.7-8.2)
[2023-10-24 09:12] LABS: INR 1.11
[2023-10-24 09:13] LABS: PARTIAL THROMBOPLASTIN TIME 29.3 SECONDS (24.8-34.2)
[2023-10-24 09:18] LABS: PROCALCITONIN 0.04 ng/ml
[2023-10-24 09:22] LABS: VALPROIC ACID (DEPAKOTE) < 3.0 UG/ML (50.0-100.0)
[2023-10-24 09:23] LABS: BLOOD UREA NITROGEN 15 MG/DL (9-23); CALCIUM LEVEL 8.3 MG/DL (8.5-10.1); CARBON DIOXIDE LEVEL 23 MMOL/L (20-31); CHLORIDE LEVEL 105 MMOL/L (98-107); CREATININE FOR GFR 1.01 MG/DL (0.70-1.30); GLOMERULAR FILTRATION RATE > 60.0 (>60); GLUCOSE, FASTING 131 MG/DL (60-100); POTASSIUM SERUM 4.3 MMOL/L (3.5-5.1); SODIUM LEVEL 136 MMOL/L (136-145)
[2023-10-24 11:49] LABS: APPEARANCE, URINE CLEAR (CLEAR); BACTERIA, URINE AUTO 1+ (NEGATIVE); BILIRUBIN, URINE AUTO NEGATIVE (NEGATIVE); BLOOD, URINE BLOOD NEGATIVE (NEGATIVE); COLOR, URINE YELLOW (YELLOW); GLUCOSE, URINE (UA) AUTO NEGATIVE (NEGATIVE); KETONE, URINE AUTO TRACE mg/dL (NEGATIVE); LEUKOCYTE ESTERASE, URINE AUTO NEGATIVE (NEGATIVE); MUCUS, URINE SMALL (NEGATIVE); NITRITE, URINE AUTO NEGATIVE (NEGATIVE); PROTEIN, URINE AUTO 1+ mg/dL (NEGATIVE); RBC, URINE AUTO 1 /HPF (0-3); SPECIFIC GRAVITY URINE AUTO 1.023 (1.002-1.035); SQUAMOUS EPITHELIAL CELL UR AU 0 /HPF (0-6); UROBILINOGEN, URINE AUTO 0.2 mg/dL (0.0-2.0); WBC, URINE AUTO 3 /HPF (0-3)
[2023-10-24 12:13] LABS: AMPHETAMINES LEVEL URINE NEGATIVE (NEGATIVE); BARBITURATES URINE NEGATIVE (NEGATIVE); BENZODIAZEPINES URINE NEGATIVE (NEGATIVE); COCAINE METABOLITE URINE NEGATIVE (NEGATIVE); METHADONE URINE NEGATIVE (NEGATIVE); OPIATES URINE NEGATIVE (NEGATIVE); PHENCYCLIDINE URINE NEGATIVE (NEGATIVE)
[2023-10-24 12:14] LABS: CANNABINOIDS URINE POSITIVE (NEGATIVE)
[2023-10-24 14:19] VITALS: BP 124/68; TEMP 98.9; O2SAT 98
== END 2023-10-24 14:42 | disposition home or self-care (01) ==
LOC: M ED 07:44
DX: U07.1 COVID-19 (principal); G40.909 Epilepsy, unspecified, not intractable, without status epilepticus; R00.0 Tachycardia, unspecified; Z79.899 Other long term (current) drug therapy
CPT/HCPCS: 71045; 80048; 80076; 80164; 80175; 80180; 80307; 81001; 82150; 82803; 83605; 83690; 84145; 85025; 85610; 85730; 86140; 86850; 86900; 86901; 87040; 87086; 87486; 87581; 87633; 87798; 93005; 93041; 94760; 96361; 96365; 99285; J0696

== ENCOUNTER 2024-02-08 17:19 | Emergency (ER) | payer OTHER ==
[~2024-02-08] VITALS: Ht 172.7 cm; Wt 60.7 kg
[2024-02-08] MEDS: OXcarbazepine 300 MG TAB PO ONE (19:29)
[2024-02-08] MEDS: levETIRAcetam 250MG TABLET (KEPPRA) PO ONE (19:30)
[2024-02-08 19:35] VITALS: BP 109/68; TEMP 98.7; O2SAT 99
== END 2024-02-08 19:36 | disposition home or self-care (01) ==
LOC: M ED 17:19
DX: G40.909 Epilepsy, unspecified, not intractable, without status epilepticus (principal); Z76.0 Encounter for issue of repeat prescription; F17.200 Nicotine dependence, unspecified, uncomplicated; Z79.899 Other long term (current) drug therapy

== ENCOUNTER 2024-02-29 09:53 | Emergency (ER) | payer OTHER ==
[~2024-02-29] VITALS: Ht 172.7 cm; Wt 60.2 kg
[2024-02-29] MEDS ORDERED: KEPP10002 PO (11:36)
[2024-02-29] MEDS ORDERED: OXCA600T8 PO (11:36)
[2024-02-29] MEDS: levETIRAcetam 250MG TABLET (KEPPRA) PO ONE (11:45)
[2024-02-29 11:50] VITALS: BP 134/67; TEMP 98.3; O2SAT 98
== END 2024-02-29 11:57 | disposition home or self-care (01) ==
LOC: M ED 09:53
DX: G40.909 Epilepsy, unspecified, not intractable, without status epilepticus (principal); Z76.0 Encounter for issue of repeat prescription; F17.200 Nicotine dependence, unspecified, uncomplicated; Z79.899 Other long term (current) drug therapy

== ENCOUNTER 2024-04-04 10:38 | Emergency (ER) | payer OTHER ==
[~2024-04-04] VITALS: Ht 172.7 cm; Wt 60.2 kg
[2024-04-04 12:20] LABS: HEMATOCRIT 46.7 % (42.0-52.0); MEAN CORPUSCULAR HEMOGLOBIN 30.8 pg (27.0-33.0); MEAN CORPUSCULAR HGB CONC 34.3 g/dl (32.0-36.5); PLATELET COUNT, AUTOMATED 308 10^3/uL (150-450); RED BLOOD COUNT 5.19 10^6/uL (4.30-6.10); WHITE BLOOD COUNT 4.1 10^3/uL (4.0-10.0)
[2024-04-04 12:41] LABS: ALBUMIN 4.5 G/DL (3.2-5.2); ALKALINE PHOSPHATASE 92 U/L (46-116); ALT/SGPT 15 U/L (7.0-40); AST/SGOT < 8 U/L (<34); BILIRUBIN,TOTAL 0.6 MG/DL (0.3-1.2); BLOOD UREA NITROGEN 11 MG/DL (9-23); CALCIUM LEVEL 9.4 MG/DL (8.5-10.1); CARBON DIOXIDE LEVEL 28 MMOL/L (20-31); CHLORIDE LEVEL 105 MMOL/L (98-107); CREATININE FOR GFR 0.99 MG/DL (0.70-1.30); GLOMERULAR FILTRATION RATE > 60.0 (>60); GLUCOSE, FASTING 95 MG/DL (60-100); POTASSIUM SERUM 4.5 MMOL/L (3.5-5.1); SODIUM LEVEL 140 MMOL/L (136-145); TOTAL PROTEIN 7.4 G/DL (5.7-8.2)
[2024-04-04 13:20] VITALS: BP 118/83; TEMP 97.6; O2SAT 100
[2024-04-07 04:08] LABS: LEVETIRACETAM (KEPPRA) 11.4 mcg/mL (6.0-46.0)
[2024-04-07 15:05] LABS: OXCARBAZEPINE 23.3 mcg/mL (8.0-35.0)
== END 2024-04-04 13:21 | disposition home or self-care (01) ==
LOC: M ED 10:38
DX: Z76.0 Encounter for issue of repeat prescription (principal); F12.10 Cannabis abuse, uncomplicated; Z79.899 Other long term (current) drug therapy

== ENCOUNTER 2024-04-04 19:15 | Emergency (ER) | payer OTHER ==
[~2024-04-04] VITALS: Ht 172.7 cm; Wt 66.0 kg
[2024-04-04 19:49] LABS: IONIZED CALCIUM 4.7 MG/DL (4.5-5.3)
[2024-04-04] MEDS: levETIRAcetam INJection 1,500 MG in D5W 100 ML IV ONE (19:50)
[2024-04-04 19:56] LABS: BASO % 0.4 % (0.0-1.0); EOS % 0.4 % (0.0-3.0); HEMATOCRIT 42.1 % (42.0-52.0); HEMOGLOBIN 14.7 g/dl (13.5-17.5); LYMPH # 1.4 10^3/uL (1.5-5.0); LYMPH % 30.1 % (24.0-44.0); MEAN CORPUSCULAR HEMOGLOBIN 31.3 pg (27.0-33.0); MEAN CORPUSCULAR HGB CONC 34.9 g/dl (32.0-36.5); MEAN CORPUSCULAR VOLUME 89.8 fl (80.0-96.0); MONO # 0.4 10^3/uL (0.0-0.8); MONO % 9.1 % (2.0-8.0); NEUTROPHILS # 2.8 10^3/uL (1.5-8.5); NEUTROPHILS % 59.8 % (36.0-66.0); PLATELET COUNT, AUTOMATED 282 10^3/uL (150-450); RED BLOOD COUNT 4.69 10^6/uL (4.30-6.10); WHITE BLOOD COUNT 4.7 10^3/uL (4.0-10.0)
[2024-04-04] MEDS: NS 1,000 ML IV ONE (19:56)
[2024-04-04 20:19] LABS: ALBUMIN 4.3 G/DL (3.2-5.2); ALKALINE PHOSPHATASE 83 U/L (46-116); ALT/SGPT 13 U/L (7.0-40); AST/SGOT < 8 U/L (<34); BILIRUBIN,DIRECT 0.2 MG/DL (<0.4); BILIRUBIN,TOTAL 0.5 MG/DL (0.3-1.2); BLOOD UREA NITROGEN 13 MG/DL (9-23); CALCIUM LEVEL 9.6 MG/DL (8.5-10.1); CARBON DIOXIDE LEVEL 27 MMOL/L (20-31); CHLORIDE LEVEL 104 MMOL/L (98-107); CREATININE FOR GFR 0.97 MG/DL (0.70-1.30); GLOMERULAR FILTRATION RATE > 60.0 (>60); GLUCOSE, FASTING 101 MG/DL (60-100); MAGNESIUM LEVEL 1.8 MG/DL (1.8-2.4); PHOSPHORUS LEVEL 4.2 MG/DL (2.5-4.9); POTASSIUM SERUM 4.3 MMOL/L (3.5-5.1); SODIUM LEVEL 139 MMOL/L (136-145); TOTAL PROTEIN 6.9 G/DL (5.7-8.2)
[2024-04-04 20:56] VITALS: BP 110/64; TEMP 97.1; O2SAT 100
[2024-04-04] MEDS: OXcarbazepine 300 MG TAB PO STA (20:56)
== END 2024-04-04 21:00 | disposition home or self-care (01) ==
LOC: M ED 19:15
DX: Z91.148 Patient's other noncompliance with medication regimen for other reason (principal); G40.909 Epilepsy, unspecified, not intractable, without status epilepticus; F17.210 Nicotine dependence, cigarettes, uncomplicated; Z79.899 Other long term (current) drug therapy
CPT/HCPCS: 80048; 80076; 82140; 82330; 83605; 83735; 84100; 85025; 93041; 94760; 96365; 99284; J1953

== ENCOUNTER 2024-05-05 09:06 | Emergency (ER) | payer OTHER ==
[~2024-05-05] VITALS: Ht 172.7 cm; Wt 59.1 kg
[2024-05-05] MEDS: levETIRAcetam 250MG TABLET (KEPPRA) PO ONE (11:26)
[2024-05-05] MEDS: OXcarbazepine 300 MG TAB PO ONE (11:26)
[2024-05-05] MEDS ORDERED: LEVE250T5 PO (13:22)
[2024-05-05] MEDS ORDERED: OXCA600T8 PO (13:22)
[2024-05-05] MEDS ORDERED: KEPP10002 PO (13:22)
[2024-05-05 13:41] VITALS: BP 118/75; TEMP 98.3; O2SAT 100
== END 2024-05-05 13:43 | disposition home or self-care (01) ==
LOC: M ED 09:06
DX: G40.909 Epilepsy, unspecified, not intractable, without status epilepticus (principal); Z76.0 Encounter for issue of repeat prescription; F12.10 Cannabis abuse, uncomplicated; Z79.899 Other long term (current) drug therapy

== ENCOUNTER → 2024-05-22 | Outpatient (REF) | payer OTHER ==
[~2024-05-22] MED LIST changes: +LEVE250T5 PO
[2024-05-22 14:15] LABS: HEMOGLOBIN A1c 4.8 % (4.0-6.0)
[2024-05-22 14:32] LABS: ALBUMIN 3.9 G/DL (3.2-5.2); ALKALINE PHOSPHATASE 92 U/L (46-116); ALT/SGPT 12 U/L (7.0-40); AST/SGOT < 8 U/L (<34); BILIRUBIN,TOTAL 0.3 MG/DL (0.3-1.2); BLOOD UREA NITROGEN 11 MG/DL (9-23); CALCIUM LEVEL 9.7 MG/DL (8.5-10.1); CARBON DIOXIDE LEVEL 30 MMOL/L (20-31); CHLORIDE LEVEL 108 MMOL/L (98-107); CHOLESTEROL LEVEL 133 MG/DL (<200); CHOLESTEROL RISK RATIO 2.77 (<5); CREATININE FOR GFR 1.01 MG/DL (0.70-1.30); GLOMERULAR FILTRATION RATE > 60.0 (>60); GLUCOSE, FASTING 77 MG/DL (60-100); HDL CHOLESTEROL 47.9 MG/DL (>40); LDL CHOLESTEROL 64.1 MG/DL (<100); NON-HDL-C 85.1 MG/DL; POTASSIUM SERUM 4.4 MMOL/L (3.5-5.1); SODIUM LEVEL 141 MMOL/L (136-145); TOTAL PROTEIN 6.7 G/DL (5.7-8.2); TRIGLYCERIDES LEVEL 105 MG/DL (<150)
[2024-05-22 14:34] LABS: TOTAL 25(OH) VITAMIN D 19.5 NG/ML (20.0-100.0)
== END ==
LOC: M LAB REF 13:20
PROVIDERS: ATTEND Nurse Practitioner Family
DX: Z13.220 Encounter for screening for lipoid disorders (principal); Z13.1 Encounter for screening for diabetes mellitus; Z13.29 Encounter for screening for other suspected endocrine disorder; E55.9 Vitamin D deficiency, unspecified

== ENCOUNTER 2024-06-16 12:15 | Emergency (ER) | payer OTHER ==
[~2024-06-16] VITALS: Ht 172.7 cm; Wt 58.3 kg
[2024-06-16] MEDS: levETIRAcetam INJection 1,000 MG in D5W 100 ML IV ONE (13:15)
[2024-06-16 13:35] LABS: BLOOD UREA NITROGEN 13 MG/DL (9-23); CALCIUM LEVEL 9.3 MG/DL (8.5-10.1); CARBON DIOXIDE LEVEL 23 MMOL/L (20-31); CHLORIDE LEVEL 106 MMOL/L (98-107); CREATININE FOR GFR 0.98 MG/DL (0.70-1.30); GLOMERULAR FILTRATION RATE > 60.0 (>60); GLUCOSE, FASTING 91 MG/DL (60-100); POTASSIUM SERUM 4.6 MMOL/L (3.5-5.1); SODIUM LEVEL 136 MMOL/L (136-145)
[2024-06-16] MEDS ORDERED: LEVE250T5 PO (14:20)
[2024-06-16] MEDS ORDERED: OXCA600T8 PO (14:20)
[2024-06-16 15:15] VITALS: BP 110/62; TEMP 98.4; O2SAT 100
== END 2024-06-16 15:50 | disposition home or self-care (01) ==
LOC: EDBD 12:15 → M ED 12:15
DX: G40.909 Epilepsy, unspecified, not intractable, without status epilepticus (principal); F12.10 Cannabis abuse, uncomplicated; Z79.899 Other long term (current) drug therapy
CPT/HCPCS: 80048; 96374; 99284; J1953

== ENCOUNTER 2024-07-07 12:07 | Emergency (ER) | payer OTHER ==
[~2024-07-07] VITALS: Ht 172.7 cm; Wt 56.8 kg
[2024-07-07 12:09] VITALS: BP 139/82; TEMP 98.6; O2SAT 98
[2024-07-07] MEDS ORDERED: KEPP10002 PO (12:32)
== END 2024-07-07 12:51 | disposition home or self-care (01) ==
LOC: M ED 12:07
DX: Z76.0 Encounter for issue of repeat prescription (principal); G40.909 Epilepsy, unspecified, not intractable, without status epilepticus; Z79.899 Other long term (current) drug therapy

== ENCOUNTER 2024-09-03 11:29 | Emergency (ER) | payer OTHER, SELFPAY ==
[~2024-09-03] VITALS: Ht 172.7 cm; Wt 63.6 kg
[2024-09-03 11:32] VITALS: BP 122/61; TEMP 97.5; O2SAT 98
== END 2024-09-03 12:42 | disposition home or self-care (01) ==
LOC: M ED 11:29
DX: G40.909 Epilepsy, unspecified, not intractable, without status epilepticus (principal); Z76.0 Encounter for issue of repeat prescription; F17.200 Nicotine dependence, unspecified, uncomplicated; F12.10 Cannabis abuse, uncomplicated; Z79.899 Other long term (current) drug therapy

== ENCOUNTER 2024-10-02 11:37 | Emergency (ER) | payer OTHER, SELFPAY ==
[~2024-10-02] VITALS: Ht 172.7 cm; Wt 61.9 kg
[2024-10-02] MEDS ORDERED: KEPP10002 PO (13:26)
[2024-10-02] MEDS ORDERED: OXCA600T8 PO (13:26)
[2024-10-02 13:39] VITALS: BP 122/62; TEMP 98; O2SAT 100
== END 2024-10-02 13:40 | disposition home or self-care (01) ==
LOC: M ED 11:37
DX: Z76.0 Encounter for issue of repeat prescription (principal); G40.909 Epilepsy, unspecified, not intractable, without status epilepticus; Z79.899 Other long term (current) drug therapy

== ENCOUNTER 2025-05-21 15:05 | Emergency (ER) | payer OTHER ==
[~2025-05-21] VITALS: Ht 172.7 cm; Wt 61.7 kg
[~2025-05-21 15:05] MED LIST changes: +DIVA-41 PO; -DIVA500T94 PO
[2025-05-21 17:36] VITALS: BP 111/68; TEMP 97.9; O2SAT 97
== END 2025-05-21 17:36 | disposition home or self-care (01) ==
LOC: M ED 15:05
DX: Z76.0 Encounter for issue of repeat prescription (principal); G40.909 Epilepsy, unspecified, not intractable, without status epilepticus; F17.200 Nicotine dependence, unspecified, uncomplicated; Z79.899 Other long term (current) drug therapy

== ENCOUNTER 2025-06-05 11:15 | Emergency (ER) | payer OTHER ==
[~2025-06-05] VITALS: Ht 172.7 cm; Wt 60.1 kg
[2025-06-05 14:44] VITALS: BP 118/70; TEMP 97.3; O2SAT 98
[2025-06-05] MEDS ORDERED: OXCA600T8 PO (15:18)
[2025-06-05] MEDS ORDERED: KEPP10002 PO (15:18)
== END 2025-06-05 15:26 | disposition home or self-care (01) ==
LOC: M ED 14:20
DX: Z76.0 Encounter for issue of repeat prescription (principal); G40.909 Epilepsy, unspecified, not intractable, without status epilepticus; Z79.899 Other long term (current) drug therapy

== ENCOUNTER → 2025-06-20 | Outpatient (REF) | payer OTHER ==
[2025-06-20 14:13] LABS: Trichomonas vaginalis (AMP) NOT DETECTED (NEGATIVE)
[2025-06-20 14:38] LABS: GC DNA AMPLIFICATION NEGATIVE (NEGATIVE)
[2025-06-20 15:15] LABS: ALT/SGPT 13 U/L (7.0-40); AST/SGOT 12 U/L (<34); CALCIUM LEVEL 9.4 MG/DL (8.5-10.1); CARBON DIOXIDE LEVEL 31 MMOL/L (20-31); CHLORIDE LEVEL 109 MMOL/L (98-107); CREATININE FOR GFR 0.90 MG/DL (0.70-1.30); GLOMERULAR FILTRATION RATE > 90.0 (>60); POTASSIUM SERUM 4.3 MMOL/L (3.5-5.1); SODIUM LEVEL 148 MMOL/L (136-145)
[2025-06-20 15:19] LABS: FREE T4 0.81 NG/DL (0.89-1.76)
[2025-06-20 15:22] LABS: TOTAL 25(OH) VITAMIN D 8.8 NG/ML (20.0-100.0)
[2025-06-20 15:45] LABS: HIV 1&2 SCREEN NEGATIVE (NEGATIVE)
[2025-06-20 15:52] LABS: HEPATITIS C VIRUS ABY INDEX < 0.02 INDEX (<0.8)
== END ==
LOC: M LAB REF 12:04
PROVIDERS: ATTEND Physician Assistant
DX: Z11.3 Encounter for screening for infections with a predominantly sexual mode of transmission (principal); A64 Unspecified sexually transmitted disease

== ENCOUNTER → 2025-08-21 | Outpatient (REF) | payer OTHER ==
[2025-08-21 13:37] LABS: CALCIUM LEVEL 9.4 MG/DL (8.5-10.1); CARBON DIOXIDE LEVEL 29 MMOL/L (20-31); CHLORIDE LEVEL 103 MMOL/L (98-107); CREATININE FOR GFR 0.98 MG/DL (0.70-1.30); FREE T4 0.92 NG/DL (0.89-1.76); GLOMERULAR FILTRATION RATE > 90.0 (>60); POTASSIUM SERUM 4.4 MMOL/L (3.5-5.1); SODIUM LEVEL 140 MMOL/L (136-145); THYROID PEROXIDASE ANTIBODY < 28.0 U/ML (<60.0); TOTAL T3 103.1 NG/DL (60.0-181.0)
[2025-08-21 13:48] LABS: THYROGLOBULIN ANTIBODY < 15.0 U/ML (<60.0)
== END ==
LOC: M LAB REF 12:31
PROVIDERS: ATTEND Physician Assistant
DX: R79.89 Other specified abnormal findings of blood chemistry (principal)